=== PATIENT | male | born 1945 | race Caucasian/White ===

== ENCOUNTER 2016-07-10 16:17 | Inpatient (IN) | payer OTHER, BC ==
[~2016-07-10] VITALS: Ht 177.8 cm; Wt 81.6 kg
--- NOTE | ~2016-07-10 | HC ---
[facility] [place] [address] CONSULTATION Name: MARGIE SANCHEZ Room #: 456-P [facility] IN M.R.#: [id number] Admission: 07/10/16 Attend Phys: Akhil Salas MD Discharge: 07/11/16 Date of : 41 Report #: [id number] THIS REPORT FOR: //name// CC: Xavier Salas DATE OF SERVICE: 07/10/2016 HISTORY OF PRESENT ILLNESS: This is a 70-year-old male patient who was seen by me in the emergency room. The patient had an episode of speech difficulty. He has some speech problems in his baseline. That stems from the fact that the patient had radiation to the neck because of the cancer of the throat. This came in when he woke up. His speech problem was severe but it resolved by itself. He came to emergency room and in the emergency room, this patient had a CT scan followed by CT angio of the head and neck and they were all unremarkable. The patient did not have this kind of episode before. He does not look like he had any focal motor deficit with it. REVIEW OF SYSTEMS: Indicate this patient has a history of throat cancer. He has a heart stents. He has hyperlipidemia. He has some history to suggest poorly treated sleep apnea. He does have some history of anxiety. He is feeling back to his baseline now. He is not complaining of any new eye, ENT, cardiac, respiratory, GI, , musculoskeletal, constitutional, dermatological, hematological, psychiatric, throat or allergic symptom associated with present symptomatology. PAST MEDICAL HISTORY: Positive for cardiac disease. FAMILY HISTORY: Negative for early age stroke. SOCIAL HISTORY: He does not drink any alcohol and does not smoke. PHYSICAL EXAMINATION: NEUROLOGICAL: Indicate his speech does look somewhat slurred but that is his baseline. Otherwise, he does not have any change in his memory cognition. He is oriented. He is alert. Cranial nerve examination 2 to 12 is unremarkable. Strength, sensation, reflexes and tones are symmetrical. He has no cerebellar sign. He does not have any papilledema and I did not make him walk. GENERAL: He is otherwise well developed individual who does not have any dysmorphic features of eyes, ears and face. EXTREMITIES: His pulses are palpable. He has no edema, cyanosis or jaundice. CARDIAC: Examination does not show any atrial fibrillation. RESPIRATORY: No respiratory difficulty was noticed. VITAL SIGNS: His blood pressure is 118/86, respirations 18, pulse is 62 and temperature is 99.1. [facility] [address] [place] [address] CONSULTATION Name: MARGIE SANCHEZ Room #: 456-P [facility]#: [id number] Admission: 07/10/16 Attend Phys: Akhil Salas MD Discharge: 07/11/16 Date of : 41 Report #: [id number] LABORATORY DATA: His labs indicate normal white count, normal sodium and normal GFR. Bilirubin is a trace high. His LDL is only 63. IMPRESSION: This patient's symptoms are suggestive of transient ischemic attack. His symptoms have resolved. Therefore, he was not given TPA. Subsequently, his angiogram came out to be negative and hence, he is not a candidate for any intervention. We need to mainly work him up for transient ischemic attack and do the further management accordingly. RECOMMENDATIONS: 1. MRI of the brain tomorrow. 2. Echocardiogram. 3. More workup as I ordered. 4. Healthy lifestyle. 5. We will reevaluate him tomorrow. Thank you very much for this referral and we will leave further recommendation as indicated on the basis of his workup. Thank you very much for this referral. <ELECTRONICALLY SIGNED> By: Kobi Chapin MD 07/19/16 1544 2102 0945 Kobi Chapin MD /nt
--- NOTE | ~2016-07-10 | H ---
[facility] [place] [address] HISTORY AND PHYSICAL Name: MARGIE SANCHEZ Room #: 456-P [facility] IN M.R.#: [id number] Admission: 07/10/16 Attend Phys: Akhil Salas MD Discharge: 07/11/16 Date of : 41 Report #: [id number] THIS REPORT FOR: //name// CC: Xavier Salas DATE OF SERVICE: 07/10/2016 CHIEF COMPLAINT: Aphasia. HISTORY OF PRESENT ILLNESS: The patient is a 70-year-old man who woke up this morning with aphasia. The patient states that he was not able to talk. His speech gradually came back and 20 minutes later, he was completely asymptomatic. He presented to the emergency room with these symptoms. His CT of the head was unremarkable. CT angiography was also unrevealing. Neurologist has also seen and evaluated the patient. Currently, the patient feels well. He denies headaches, blurry vision, dizziness, weakness, numbness, or any other symptoms. He feels comfortable. In the emergency room, his evaluation was also unrevealing. He has been hemodynamically stable and febrile. PAST MEDICAL HISTORY: 1. Coronary artery disease, status post stent placement in 2004. 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 2. History of vocal cord cancer, status post external radiation treatment in 2005. 3. Sleep apnea. 4. Depression. 5. Anxiety. 6. Dyslipidemia. HOME MEDICATIONS: The patient is on aspirin 81 mg a day, Lipitor 40 mg a day, Celexa 20 mg a day, Tylenol No. 3 as needed, diazepam 5 mg in the morning, famotidine 20 mg at night, omeprazole 40 mg a day. FAMILY HISTORY: The patient denies family history of strokes. SOCIAL HISTORY: The patient quit smoking cigarettes about 2 years ago. He does not drink alcohol. REVIEW OF SYSTEMS: As above in HPI section, all others negative. PHYSICAL EXAMINATION: GENERAL: The patient is healthy looking elderly man who is in no apparent [facility] [address] [place] [address] HISTORY AND PHYSICAL Name: MARGIE SANCHEZ [place] Room #: 456-[facility] IN M.R.#: [id number] Admission: 07/10/16 Attend Phys: Akhil Salas MD Discharge: 07/11/16 Date of : 41 Report #: [id number] distress. He is alert and oriented x 3. VITAL SIGNS: His blood pressure is 120/87, heart rate is 67 and regular, respiration is 15 and temperature is reported afebrile. Oxygen saturation is 97%. HEENT: Pupils are equal. Eye movements are normal. Sclerae are anicteric. Cranial nerve examination reveals no deficit. Oral mucosa is moist. Ear examination is deferred. NECK: Supple. The patient has no thyromegaly. He has no carotid bruits. RESPIRATORY: Chest moved symmetrically with breathing. LUNGS: Clear to auscultation bilaterally. CARDIOVASCULAR: The patient has no murmurs, gallops or rubs. Heart rate is regular. GASTROINTESTINAL: Soft, nondistended, and nontender. Bowel sounds are present. Hepatomegaly or splenomegaly is not palpated. MUSCULOSKELETAL: There is no edema, cyanosis or clubbing. NEUROLOGIC: The patient is alert and oriented times 3. He has no motor or sensory deficits. SKIN: Reveals no skin lesions. Skin is dry and warm. LABORATORY DATA: Basic metabolic profile is essentially normal. Liver function tests normal. Troponin is normal. Creatinine is normal at 1.2. CBC with differential is normal, except slightly high monocytes. Urinalysis is pending. CT of the brain showed no acute findings. CT angiography of the brain was performed that showed no stenosis. ASSESSMENT AND PLAN: 1. Transient ischemic attack. Neurologist is already consulted and consultation is very much appreciated. The patient will be admitted to the hospital and will be monitored on telemetry unit. We will obtain cardiac echo, as well as consider MRI of the brain for further evaluation. 2. Dyslipidemia. We are checking fasting lipid profile. 3. Anxiety and depression. Stable. Home medications will be continued unchanged. 4. Deep venous thrombosis prophylaxis. We will use subcutaneous Lovenox. <ELECTRONICALLY SIGNED> By: Akhil Salas MD 07/12/161928 36 53 Akhil Salas MD /nt
--- NOTE | ~2016-07-10 | 2DMMODE ---
[facility] [place] [address] 2 D/M-MODE ECHOCARDIOGRAM Name: MARGIE SANCHEZ Room #: 456-P [facility] IN M.R.#: [id number] Admission: 07/10/16 Attend Phys: Akhil Salas Discharge: Date of : 41 Date of Service: 07/11/16 1324 Report #: [id number] THIS REPORT FOR: //name// Transthoracic Echocardiography Ordering physician: Akhli Salas Referring physician: Xavier Grimm Nikoloz G. Electoral Officer: Yvette Alejandro Indications/History: TIA/CVA. Hx: CAD, stent BP: 103 / HR: 52bpm Height: 70in Weight: 180.6lb 66 Study data: M-mode, complete 2D, complete spectral Doppler, and color Doppler. Location: Echo laboratory. Routine. Image quality was adequate. Intravenous contrast (agitated saline) was administered. 2D measurements Normal Normal LVID ED 45.4mm 36-57 IVS ED 9.6mm 6-11 LVID ES 30mm 23-40 LVPW ED 10.2mm 6-11 LA volume 20ml/m2 16-28 AoRoot diam 36.4mm 21-37 index ED LVOT diameter 20mm 18-23 Findings: Left ventricle: The cavity size was normal. Wall thickness was normal. Systolic function was normal. The estimated ejection fraction was in the range of 55% to 60%. Wall motion was normal. Right ventricle: The cavity size was normal. Systolic function was normal. Right atrium: The atrium was normal in size. Left atrium: The atrium was normal in size. Volume index: 20ml/m2 (S). Atrial septum: No defect or patent foramen ovale was identified with bubble study. [address] [address] 2 D/M-MODE ECHOCARDIOGRAM Name: MARGIE SANCHEZ Room #: 456-P [facility] IN [place]#: [id number] Admission: 07/10/16 Attend Phys: Akhil Salas Discharge: Date of : 41 Date of Service: 07/11/16 1324 Report #: [id number] Aortic valve: Structurally normal valve. Doppler: There was no stenosis. No regurgitation. Peak velocity: 94.2cm/s (S). Mitral valve: Structurally normal valve. Doppler: There was no evidence for stenosis. Mild regurgitation. Peak E-wave velocity: 53.5cm/s. Peak A-wave velocity: 33.4cm/s. Tricuspid valve: Structurally normal valve. Doppler: There was no evidence for stenosis. Mild regurgitation. Regurgitant peak velocity: 244cm/s. Peak RV-RA gradient: 24mm Hg (S). Pulmonic valve: Structurally normal valve. Doppler: There was no evidence for stenosis. Trivial regurgitation. Pericardium: There was no pericardial effusion. Aorta: Aortic root: The aortic root was normal in size. Pulmonary artery: Systolic pressure was estimated to be 30mm Hg. Diastolic function: Normal diastolic function. Systemic veins: Inferior vena cava: The vessel was normal in size; the respirophasic diameter changes were in the normal range (= 50%). Conclusions 1. Left ventricle: Systolic function was normal. The estimated ejection fraction was in the range of 55% to 60%. Wall motion was normal. Normal diastolic function. 2. Atrial septum: No defect or patent foramen ovale was identified with bubble study. 3. Aortic valve: Structurally normal valve. There was no stenosis. No regurgitation. 4. Mitral valve: Structurally normal valve. Mild regurgitation. 5. Pericardium, extracardiac: There was no pericardial effusion. 6. Pulmonary arteries: Systolic pressure was estimated to be 30mm Hg. <ELECTRONICALLY SIGNED> By: Stew Mirza MD, [facility] 07/11/16 1426 1324 142 Stew Mirza MD, [facility] /jeff
--- NOTE | ~2016-07-10 | EKG ---
[address] [employer] [place] [address] ELECTROCARDIOGRAM REPORT Name: KAYBIANCA GANNONERIN ELIZALDE Room #: 456-P [facility] IN M.R.#: [id number] Admission: 07/10/16 Attend Phys: Akhil Salas MD Discharge: Date of : 41 Report #: [id number] THIS REPORT FOR: //name// [facility] ED Test Date: 2016-07-10 Test Time: 17:09:25 Pat Name: MARGIE SANCHEZ Department: Room: [facility] Gender: M Auto Repair Technician: junior : 1945 Requested By: Melo Pompa Order Number: [id number] MD: Stew Mirza Measurements Intervals [place] Rate: 57 P: 60 [place]: 165 QRS: -13 QRSD: 101 T: -4 QT: 424 QTc: 413 Interpretive Statements Sinus bradycardia Otherwise no significant abnormality No previous ECG available for comparison Electronically Signed On 07-11-2016 8:56:35 MANAGER LAUNDRY by Stew Mirza [email or web address] <ELECTRONICALLY SIGNED> By: Stew Mirza MD, LOCATED WITHIN [facility] 07/11/16 0856 1709 08 Stew Mirza MD, FACC /EPI
[~2016-07-10 16:17] MED LIST: ASPIRIN325 PO; CELEXA 20 MG TA20 M1 PO; FISH OIL 1,0001 EAC5 PO; LIPITOR40 MG PO; OMEPRAZOLE40 MG PO; PEPCID20 MG PO; VALIUM5 MG PO
[2016-07-10 16:21] VITALS: BP 138/86
[2016-07-10 16:39] LABS: ABSOLUTE NEUTROPHILS 5.1 thou/uL (1.4-8.2); BASOPHILS 0.8 % (0.0-2.0); EOSINOPHILS 3.1 % (0.0-3.0); HEMATOCRIT 43.3 % (42.0-52.0); HEMOGLOBIN 14.6 gm/dL (14.0-18.0); LYMPHOCYTES 28.7 % (24.0-44.0); MCH 31.3 pg (26.0-34.0); MCHC 33.8 % (28.0-37.0); MCV 92.4 fL (80.0-100.0); MONOCYTES 9.7 % (1.0-8.0); PLATELET COUNT 166 thou/uL (150-400); POLYS 57.7 % (36.0-66.0); RBC 4.68 mil/uL (4.50-6.00); WBC 8.8 thou/uL (4.0-11.0)
[2016-07-10 16:40] LABS: MANUAL DIFF NO
[2016-07-10 16:51] LABS: ANION GAP 7 mmol/L (7-16); BUN 15 mg/dL (7-18); CHLORIDE 104 mmol/L (98-107); CO2 29 mmol/L (21-32); CREATININE 1.2 mg/dL (0.6-1.3); GLUCOSE 90 mg/dL (70-99); POTASSIUM 4.6 mmol/L (3.5-5.1); SODIUM 140 mmol/L (136-145)
[2016-07-10 16:54] LABS: APTT 25.7 Seconds (24.5-32.8); PROTIME 10.7 Seconds (9.3-11.4)
[2016-07-10 17:00] LABS: ALBUMIN 3.7 g/dL (3.4-5.0); ALKALINE PHOSPHATASE 74 U/L (46-116); MAGNESIUM 2.1 mg/dL (1.8-2.4); SGOT 42 U/L (15-37); SGPT 32 U/L (30-65); TOTAL BILIRUBIN 1.2 mg/dL (<0.1-1.0); TOTAL PROTEIN 7.7 g/dL (6.4-8.2); TROPONIN-I < 0.04 ng/mL (<0.04-0.07)
[2016-07-10] MEDS ORDERED: ASPIR 8181 MG PO (17:02)
[2016-07-10] MEDS ORDERED: ACETAMINOPHEN-1 EAC1 PO (17:03)
[2016-07-10 19:59] VITALS: BP 117/84
[2016-07-10 19:59] LABS: CHOLESTEROL 127 mg/dL (<200); HDL CHOLESTEROL 42 mg/dL (>40); LDL CHOLESTEROL 63 mg/dL (<100); TRIGLYCERIDE 112 mg/dL (<150); VLDL 22 mg/dL (<40)
[2016-07-10 20:25] VITALS: BP 118/86
[2016-07-10 22:03] LABS: URINE BILIRUBIN NEGATIVE (Negative); URINE BLOOD TRACE (Negative); URINE COLOR YELLOW; URINE GLUCOSE-RANDOM* NEGATIVE (Negative); URINE KETONES NEGATIVE (Negative); URINE NITRITE NEGATIVE (Negative); URINE PROTEIN (DIPSTICK) NEGATIVE (Negative); URINE SPECIFIC GRAVITY <= 1.005 (1.003-1.035); URINE UROBILINOGEN 0.2 E.U./dl (0.2-1.0)
[2016-07-10 22:13] LABS: AMP/METHAMP Negative (Negative); BARBITURATES Negative (Negative); BENZODIAZEPINES POSITIVE (Negative); COCAINE Negative (Negative); METHADONE Negative (Negative); OPIATES POSITIVE (Negative); PCP Negative (Negative); THC Negative (Negative)
[2016-07-11 00:13] VITALS: BP 93/58
[2016-07-11 02:08] LABS: GLYCOHEMOGLOBIN (HGB A1C) 5.3 % (4.8-5.6)
[2016-07-11 03:31] VITALS: BP 90/55
[2016-07-11 08:00] VITALS: BP 104/77
[2016-07-11 12:00] VITALS: BP 103/66
[2016-07-11] MEDS ORDERED: ASPIR 8181 MG PO (14:29)
[2016-07-11 14:41] VITALS: BP 103/66
== END 2016-07-11 15:11 | disposition home or self-care (01) | DRG 69 ==
LOC: ER 16:17 → EROBS 18:07 → 4W 18:07
PROVIDERS: Emergency Medicine; Internal Medicine Endocrinology, Diabetes & Metabolism
DX: G45.9 Transient cerebral ischemic attack, unspecified (principal); R47.01 Aphasia; E78.5 Hyperlipidemia, unspecified; E78.00 Pure hypercholesterolemia, unspecified; I25.10 Atherosclerotic heart disease of native coronary artery without angina pectoris; F32.9 Major depressive disorder, single episode, unspecified; F41.9 Anxiety disorder, unspecified; K21.9 Gastro-esophageal reflux disease without esophagitis; Z79.82 Long term (current) use of aspirin; Z79.899 Other long term (current) drug therapy; Z95.5 Presence of coronary angioplasty implant and graft; Z85.21 Personal history of malignant neoplasm of larynx; Z85.9 Personal history of malignant neoplasm, unspecified; Z87.891 Personal history of nicotine dependence; Z91.041 Radiographic dye allergy status; Z88.6 Allergy status to analgesic agent
CPT/HCPCS: 10040

== ENCOUNTER → 2017-04-11 | Outpatient (CLI) | payer OTHER, BC ==
[~2017-04-11] VITALS: Ht 180.3 cm; Wt 81.7 kg
[~2017-04-11] MED LIST changes: +ACETAMINOPHEN-1 EAC1 PO; +ASPIR 8181 MG PO; +CELEXA20 MG PO; +VITAMIN D-32000 UNIT PO
--- NOTE | ~2017-04-11 | P ---
[facility] [place] [address] PROCEDURE REPORT Name: MARGIE SANCHEZ Room #: REG STEVE Murphy#: [id number] Admission: 04/11/17 Attend Phys: Matias Bell Discharge: Date of : 41 Report #: [id number] THIS REPORT FOR: //name// CC: Matias Grimm MD DATE OF SERVICE: 04/11/2017 PROCEDURE PERFORMED: Colonoscopy with biopsies. HISTORY OF PRESENT ILLNESS: The patient is a 71-year-old male with several episodes of bright red blood per rectum. He denies any abdominal pain. No previous history of colonoscopy. No family history of colon cancer. DESCRIPTION OF PROCEDURE: The risks and benefits of the procedure were explained to the patient, those risks including but not limited to bleeding, perforation, the risk of sedation. He understood these risks and gave informed consent. Sedation was given using propofol per anesthesia. Next, a digital rectal exam was abnormal and that a mass was palpated. Next, using a standard Fujinon colonoscope, the scope was placed in the patient's anus and advanced under direct vision to the cecum. The overall prep was excellent. The cecum and ileocecal valve were normal in appearance. The ascending, transverse, descending and sigmoid colon were normal. In the upper rectum, a small 5 mm sessile polyp was noted. This was removed with cold forceps. Again a malignant appearing mass was noted in the distal rectum next to the anal verge. Multiple biopsies were obtained. The mass was approximately 2-3 cm in size. The scope was then withdrawn and the procedure terminated. The patient tolerated the procedure well. IMPRESSION: 1. Malignant appearing mass in the distal rectum near the anus. Biopsies obtained. 2. Small rectal polyp. 3. Otherwise, normal colonoscopy. RECOMMENDATIONS: 1. Await biopsy results. 2. We will proceed with CT scan of the abdomen and pelvis next week. 3. We will get a CEA level as well as other labs today. 4. The patient will need surgical consultation for resection, possible radiation therapy. [facility] [address] [place] [address] PROCEDURE REPORT Name: MARGIE SANCHEZ Room #: REG STEVE Murphy#: [id number] Admission: 04/11/17 Attend Phys: Matias Bell Discharge: Date of : 41 Report #: [id number] Thank you for allowing me to participate in his care. By: 1003 1227 Matias Montelongo MD /nt
--- NOTE | ~2017-04-11 | S ---
[facility] [place] [address] SURGICAL PATH RPT PROCEDURE Name: MARGIE SANCHEZ Room #: REG STEVE Murphy#: [id number] Admission: 04/11/17 Date of : 41 Discharge: Report #: [id number] Path Case #: [id number] PATHOLOGY REPORT COLLECTION DATE: 04/11/2017 RECEIVED DATE: 04/11/2017 SUBMITTING PHYS: Dr. Matias Montelongo OTHER PHYS: Dr. Xavier Grimm ADDENDUM REPORT (Order Date: 04/15/2017 09:39) ADDENDUM COMMENT: At the request of the [facility] cancer committee, mismatch repair (MMR) protein immunohistochemical staining was performed. Specimen: Formalin fixed paraffin embedded tissue Specimen ID: [id number] Reason for testing: To evaluate for evidence of defective mismatch repair proteins. Method: Immunohistochemical staining for the presence or absence of protein expression of one or more of the following MMR protein markers: MLH1, MSH2, MSH6 and PMS2. Tumor type: Adenocarcinoma Results: MLH1 - Preserved MSH2 - Preserved MSH6 - Preserved PMS2 - Preserved Mismatch Repair Status: MMR Proficient (MMR-P) Interpretation: (MMR-P) All four MMR proteins are preserved within tumor cells. This suggests the presence of normal DNA mismatch repair function within the tumor and an observable defect in mismatch repair is not identified. The likelihood that this patient has an inherited germline mutation syndrome due to defective mismatch repair is reduced but not totally eliminated. If the patient has a strong personal or family history of HPNCC/Omalley syndrome related cancers (colorectal, endometrial, gastric, ovarian, pancreatic, ureter/renal pelvis, biliary tract, brain, small bowel and Rita-Shawn syndrome), consider MSI testing by PCR methodology. Suggest clinical correlation and follow up. (MAP:[facility]; 04/15/2017) Professional services performed by [facility] at [facility] [address], [place] [address] Technical services performed by [facility] at [address] [place] [address], [address] [place] [address]. [facility] [address] [place] [address] SURGICAL PATH RPT PROCEDURE Name: MARGIE SANCHEZ Room #: REG [facility] Lizet.#: [id number] Admission: 04/11/17 Date of : 41 Discharge: Report #: [id number] Path Case #: [id number] ELECTRONICALLY SIGNED BY: Devan Bartholomew M.D. DATE/TIME:04/15/2017 09:57 SPECIMEN(S) RECEIVED: A.Bx of rectal polyp B.Bx of distal rectal mass * * * * * * * * * * * * FINAL DIAGNOSIS: A. Bx of rectal polyp: - Tubular adenoma. - Negative for high grade dysplasia. B. 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 COMMENT: The diagnosis is discussed with Mi at Dr. Montelongo's office on 04/14/17 at 2:31 PM. This case is co-reviewed by Dr. Chana Robb. PATHOLOGIST: Devan Bartholomew M.D. REPORT ELECTRONICALLY SIGNED BY: Devan Bartholomew M.D. DATE/TIME: 04/14/2017 14:39 * * * * * * * * * * * * GROSS PATHOLOGY: A. Received in formalin labeled "Margie Oplotnik and biopsy rectal polyp," are two segment of ely soft tissue measuring 0.2 cm and 0.4 cm in maximum dimension. The specimen is submitted entirely in cassette A1. B. Received in formalin labeled "Margie Oplotnik and biopsy of distal rectal mass," are multiple segments of ely soft tissue measuring 1.0 x 0.7 x 0.4 cm in aggregate. The specimen is submitted entirely in cassette B1. (SWS; 04/11/2017) CLINICAL HISTORY: Rectal mass INITIAL CPT CODE(S): A; 73088 B; 92275, 77870, 56421, 20838, 71125 Professional services performed by [facility] at [address] [address] SURGICAL PATH RPT PROCEDURE Name: MARGIE SANCHEZ Room #: REG STEVE Murphy#: [id number] Admission: 04/11/17 Date of : 41 Discharge: Report #: [id number] Path Case #: [id number] [place] [address] [place] [address] Technical services performed by [facility] at [address] [place] [address], [address], [place] [address]. [facility] [address] [place] [address] PHONE: [phone] DIRECTOR: Caleb Finnegan M.D. * * * END OF REPORT * * *
[2017-04-11 11:28] LABS: HEMATOCRIT 42.6 % (42.0-52.0); HEMOGLOBIN 14.1 gm/dL (14.0-18.0); MCH 30.9 pg (26.0-34.0); MCHC 33.1 g/dL (28.0-37.0); MCV 93.6 fL (80.0-100.0); RBC 4.55 mil/uL (4.50-6.00); RDW 14.3 % (10.5-14.5); WBC 7.4 thou/uL (4.0-11.0)
[2017-04-11 11:36] LABS: CALCIUM 8.8 mg/dL (8.5-10.1); CREATININE 1.3 mg/dL (0.7-1.3); POTASSIUM 4.7 mmol/L (3.5-5.1)
[2017-04-11 11:42] LABS: ALBUMIN 3.6 g/dL (3.4-5.0); DIRECT BILIRUBIN 0.2 mg/dL (<0.1-0.3); TOTAL BILIRUBIN 1.6 mg/dL (<0.1-1.0); TOTAL PROTEIN 7.2 g/dL (6.4-8.2)
== END | disposition home or self-care (01) ==
LOC: GI 05:27
PROVIDERS: Specialist
DX: C20 Malignant neoplasm of rectum (principal); F32.9 Major depressive disorder, single episode, unspecified; F41.9 Anxiety disorder, unspecified; J43.9 Emphysema, unspecified; Z87.891 Personal history of nicotine dependence; Z95.5 Presence of coronary angioplasty implant and graft; E78.5 Hyperlipidemia, unspecified; K21.9 Gastro-esophageal reflux disease without esophagitis; Z98.890 Other specified postprocedural states
CPT/HCPCS: 62110; 62900

== ENCOUNTER → 2017-04-16 | Outpatient (CLI) | payer OTHER, BC | LOC: CAT 08:11 | DX: D37.4 Neoplasm of uncertain behavior of colon (principal) ==

== ENCOUNTER → 2019-01-07 | Outpatient (CLI) | payer OTHER, BC ==
[2019-01-07 09:20] LABS: CREATININE 1.2 mg/dL (0.7-1.3)
--- NOTE | 2019-01-07 09:35 | NUR ---
PT PRESENTED TO CV HOLDING PRIOR TO CTA FOR PREMEDICATION FOR IODINE ALLERGY. 20 G IV STARTED IN LEFT FOREARM. MEDICATED BY RN ORDERED. PT TOLERATED WELL. CT NOTIFED OF PT. AAOX4, SPEAKING IN COMPLETE SENTENCES, AMBULATES WITHOUT ASSISTANCE, SKIN PWD, NAD NOTED.
== END ==
LOC: SPEC 08:41
PROVIDERS: Internal Medicine
DX: J44.9 Chronic obstructive pulmonary disease, unspecified (principal); M47.814 Spondylosis without myelopathy or radiculopathy, thoracic region; J98.11 Atelectasis; Z88.8 Allergy status to other drugs, medicaments and biological substances

== ENCOUNTER → 2019-04-14 | Outpatient (CLI) | payer OTHER, BC ==
[~2019-04-14] VITALS: Ht 177.8 cm; Wt 85.3 kg
[~2019-04-14] MED LIST changes: +FAMOTIDINE 40 M40 M1 PO; +NEURONTIN 300M300 M2 PO; +OMEPRAZOLE 20 M20 M1 PO
--- NOTE | 2019-04-19 11:45 | PATH ---
[facility] [address] [place] [address] PATHOLOGY RPT PROCEDURE Name: ALANNAMARGIE FERNÁNDEZ Room #: REG STEVE Hinds.#: [id number] Admission: 04/14/19 Date of : 41 Discharge: Report #: [id number] Path Case #: [id number] [facility] Accession Number: [id number] . 01 Material submitted: . colon - POLYP AT DESCENDING COLON. Modifiers: descending . 01 Clinical history: . Preop DX: Personal hx of colon cancer Postop DX: Colon polyp . 02 Diagnosis: Polyp, at descending colon, endoscopic biopsy: - Inflamed hyperplastic polyp. - Negative for dysplasia. (IUV:chayo; 04/16/2019) QMS 04/16/2019 1303 Local . 02 Electronically signed: . Chana Robb MD, Pathologist NPI- [id number] . 01 Gross description: . Received in formalin labeled "Margie Gamboa, polyp at descending colon," is a segment of ely soft tissue measuring 0.3 x 0.3 x 0.2 cm in greatest dimensions. The specimen is submitted entirely in cassette A1. (DAC; 04/15/2019) XDC/XDC 04/15/2019 1434 Local . 02 Pathologist provided ICD-10: K63.5 . 02 CPT . 029476 Specimen Comment: A courtesy copy of this report has been sent to [phone] Specimen Comment: [phone] Specimen Comment: Report sent to / DR THOMSON Specimen Comment: A duplicate report has been generated due to demographic updates. Performed at: [address] [place] [id number] [id number] MD Willian Masterson MD Phone: [phone] Performed at: [address] [id number] [address] [address] PATHOLOGY RPT PROCEDURE Name: MARGIE GAMBOA TONIO Room #: REG STEVE Murphy#: [id number] Admission: 04/14/19 Date of : 41 Discharge: Report #: [id number] Path Case #: [id number] MD Chana Robb MD Phone: [phone]
--- NOTE | 2019-04-21 09:30 | P ---
[facility] [place] [address] PROCEDURE REPORT Name: MARGIE SANCHEZ Room #: REG STEVE Murphy#: [id number] Admission: 04/14/19 Attend Phys: Matias Bell Discharge: Date of : 41 Report #: [id number] THIS REPORT FOR: //name// CC: Bhupinder Rice PROCEDURE PERFORMED: Colonoscopy with biopsies. HISTORY OF PRESENT ILLNESS: The patient is a 73-year-old male who underwent a colonoscopy by myself on 04/11/2017 for bright red blood per rectum, was noted to have a large malignant mass in the rectum. He then underwent radiation therapy, chemotherapy and eventually a colonic resection by Dr. Bhupinder Baron. Surgery was APR with permanent colostomy. The surgery was performed on 10/08/2017. He has been doing well. He had a CT scan of the abdomen and pelvis in September of this year. There was no evidence of active disease or metastatic disease. DESCRIPTION OF PROCEDURE: The risks and benefits of the procedure were explained to the patient, those risks including but not limited to bleeding, perforation and the risk of sedation. He understood these risks and gave informed consent. Sedation was given using propofol per anesthesia. Next, using a standard Olympus colonoscope, the scope was placed in the patient's colostomy and advanced under direct vision to the cecum. The overall prep was excellent. The cecum and ileocecal valve were normal in appearance. Ascending and transverse colon were normal. In the descending colon, a single 4 mm sessile polyp was noted. This was removed with cold forceps, otherwise normal. The ostomy opening is pink and healthy. The scope was then withdrawn and the procedure terminated. The patient tolerated the procedure well. IMPRESSION: 1. Small colonic polyp. 2. Otherwise, normal colonoscopy through colostomy. RECOMMENDATIONS: 1. Await biopsy results. 2. Repeat colonoscopy in 2 years. Thank you for allowing me to participate in his care. <ELECTRONICALLY SIGNED> By: Matias Montelongo MD 04/21/19 0930 1125 0053 Matias Montelongo MD /nt
== END | disposition home or self-care (01) ==
LOC: GI 08:52
DX: Z08 Encounter for follow-up examination after completed treatment for malignant neoplasm (principal); Z85.038 Personal history of other malignant neoplasm of large intestine; K63.5 Polyp of colon; K21.9 Gastro-esophageal reflux disease without esophagitis; J43.9 Emphysema, unspecified; E78.5 Hyperlipidemia, unspecified; F32.9 Major depressive disorder, single episode, unspecified; F41.9 Anxiety disorder, unspecified; G47.30 Sleep apnea, unspecified; Z98.0 Intestinal bypass and anastomosis status; Z87.891 Personal history of nicotine dependence; Z85.21 Personal history of malignant neoplasm of larynx; Z98.890 Other specified postprocedural states; Z79.899 Other long term (current) drug therapy; Z86.73 Personal history of transient ischemic attack (TIA), and cerebral infarction without residual deficits; Z79.82 Long term (current) use of aspirin
CPT/HCPCS: 62110; 62900

== ENCOUNTER → 2019-07-20 | Outpatient (CLI) | payer OTHER, BC | END | disposition home or self-care (01) | LOC: SJCVC 10:02 | DX: I25.10 Atherosclerotic heart disease of native coronary artery without angina pectoris (principal); E78.5 Hyperlipidemia, unspecified; J43.2 Centrilobular emphysema; R94.31 Abnormal electrocardiogram [ECG] [EKG]; C18.9 Malignant neoplasm of colon, unspecified; G47.33 Obstructive sleep apnea (adult) (pediatric); Z85.21 Personal history of malignant neoplasm of larynx; K21.9 Gastro-esophageal reflux disease without esophagitis; Z95.828 Presence of other vascular implants and grafts; Z87.891 Personal history of nicotine dependence; Z79.82 Long term (current) use of aspirin; Z79.899 Other long term (current) drug therapy ==

== ENCOUNTER → 2020-01-18 | Outpatient (CLI) | payer OTHER, BC | LOC: SJCVCIMAG 08:37 | PROVIDERS: ATTEND Internal Medicine | DX: I08.1 Rheumatic disorders of both mitral and tricuspid valves (principal); I25.10 Atherosclerotic heart disease of native coronary artery without angina pectoris; I49.3 Ventricular premature depolarization; E78.00 Pure hypercholesterolemia, unspecified; J43.2 Centrilobular emphysema; G45.9 Transient cerebral ischemic attack, unspecified; C18.9 Malignant neoplasm of colon, unspecified; G47.33 Obstructive sleep apnea (adult) (pediatric); Z79.899 Other long term (current) drug therapy; Z87.891 Personal history of nicotine dependence; Z85.21 Personal history of malignant neoplasm of larynx ==

== ENCOUNTER → 2021-05-31 | Outpatient (CLI) | payer OTHER, BC ==
[~2021-05-31] MED LIST changes: +ASA81BEC PO; +PEPCID40 MG PO; +SYNTHROID25 MC1 PO
== END ==
LOC: LAB 08:52
PROVIDERS: ATTEND Student in an Organized Health Care Education/Training Program
DX: Z20.822 Contact with and (suspected) exposure to COVID-19 (principal)

== ENCOUNTER → 2021-06-01 | Outpatient (CLI) | payer OTHER, BC ==
[~2021-06-01] VITALS: Ht 177.8 cm; Wt 88.5 kg
--- NOTE | ~2021-06-01 | P ---
[facility] [place] [address] PROCEDURE REPORT Name: KAYTERESSAMARGIEERIN ELIZALDE Room #: REG YANGPreet Murphy#: [id number] Admission: 06/01/21 Attend Phys: Matias Bell Discharge: Date of : 41 Report #: [id number] THIS REPORT FOR: cc: Margie Rice MD, Stanley P. MD McElhinney, Christian C. MD ~ cc: Margie Rice MD DATE OF SERVICE: 06/01/2021 PROCEDURE PERFORMED: Colonoscopy. HISTORY OF PRESENT ILLNESS: The patient is a 75-year-old male who underwent a colonoscopy in 2017 and was noted to have a large malignant mass in the rectum. He then underwent radiation therapy, chemotherapy and eventually colonic resection by Dr. Bhupinder Baron. Surgery was an APR with permanent colostomy. The surgery was performed on 10/08/2017. Overall, the patient has been doing very well. Last colonoscopy 2 years ago, which was normal. He is here for a routine 2-year followup. DESCRIPTION OF PROCEDURE: The risks and benefits of the procedure were explained to the patient, those risks including but not limited to bleeding, perforation and the risk of sedation. He understood these risks and gave informed consent. Sedation was given using propofol per Anesthesia. Next, using a standard Olympus colonoscope, the scope was placed in the patient's colostomy and advanced under direct vision to the cecum. The overall prep was excellent. The cecum and ileocecal valve were normal in appearance. The ascending, transverse and remaining descending colon were all normal. The scope was then withdrawn and the procedure terminated. The patient tolerated the procedure well. IMPRESSION: Normal colonoscopy as described above. RECOMMENDATIONS: Repeat colonoscopy in 3 years. Thank you for allowing me to participate in his care. By: [id number] Matias Montelongo MD /nt
== END | disposition home or self-care (01) ==
LOC: GI
PROVIDERS: ATTEND Specialist
DX: Z12.11 Encounter for screening for malignant neoplasm of colon (principal); Z85.038 Personal history of other malignant neoplasm of large intestine; E78.5 Hyperlipidemia, unspecified; J43.9 Emphysema, unspecified; F32.9 Major depressive disorder, single episode, unspecified; F41.9 Anxiety disorder, unspecified; G47.30 Sleep apnea, unspecified; K21.9 Gastro-esophageal reflux disease without esophagitis; Z98.890 Other specified postprocedural states; Z79.899 Other long term (current) drug therapy; Z85.818 Personal history of malignant neoplasm of other sites of lip, oral cavity, and pharynx; Z91.041 Radiographic dye allergy status; Z88.8 Allergy status to other drugs, medicaments and biological substances
CPT/HCPCS: 62110; 62900